=== PATIENT | female | born 1990 ===

== ENCOUNTER 2017-09-29 09:06 | Emergency (ER) | payer OTHER ==
[2017-09-29 09:13] VITALS: BP 110/86; TEMP 98.7; O2SAT 98
--- NOTE | 2017-09-29 09:25 | C.PDOC ---
History Of Present Illness 27 yo female, no prior hx, presents with cough/ear pain/sore throat/subjective fever x 3 days. pt states left ear pain and sore throat. pt did not take fever at home. pt treated with otc meds. pt reports dry cough. no sick contacts. no abdominal pain. no n/v/d, no urinarychanges, no "hot potato" voice, no vomiting , Time Seen by Provider: 09/29/17 09:16 Chief Complaint (Nursing): Flu-like Symptoms Past Medical History Reviewed: Historical Data, Nursing Documentation, Vital Signs Vital Signs: Last Vital Signs Temp 98.7 F 09/29/17 09:09 Pulse 90 09/29/17 09:47 Resp 22 09/29/17 09:47 BP 110/86 09/29/17 09:09 Pulse Ox 98 09/29/17 09:47 Family History: States: Unknown Family Hx - Social History Hx Alcohol Use: No Hx Substance Use: No - Immunization History Hx Tetanus Toxoid Vaccination: No Hx Influenza Vaccination: Yes Hx Pneumococcal Vaccination: No Review Of Systems Constitutional: Positive for: Fever (subjective) ENT: Positive for: Ear Pain Respiratory: Positive for: Cough. Negative for: Shortness of Breath Gastrointestinal: Negative for: Abdominal Pain Physical Exam - Physical Exam Appears: Well, No Acute Distress, Other (speaking full sentences, in nad, no inceased wob) Skin: Normal Color, Warm, Dry Head: Atraumatic, Normacephalic Eye(s): bilateral: Normal Inspection, PERRL, EOMI Ear(s): Left: TM Dull ((+)opaque, loss of light reflex), Right: Normal Nose: Normal Oral Mucosa: Moist Throat: Erythema, Exudate Neck: Normal Cardiovascular: Rhythm Regular Respiratory: Normal Breath Sounds Gastrointestinal/Abdominal: Normal Exam, Soft, No Tenderness, No Guarding, No Rebound Back: Normal Inspection Extremity: Normal ROM Neurological/Psych: Oriented x3 ED Course And Treatment O2 Sat by Pulse Oximetry: 98 Medical Decision Making Medical Decision Making: upper respiratory infection/otitis media- pt well appearing, speaking full sentences in nad. left tm opaque withloss of light reflex, lungs clear- zpak, tylenol, outpt f/u return precautiions Disposition - Disposition Referrals: [facility] [Outside] [facility] [Outside] [facility] [Outside] Disposition: HOME/ ROUTINE Disposition Time: 09:26 Condition: STABLE Additional Instructions: please follow up with your doctor/clinic. return to er with worsening symptoms or concerns. Prescriptions: Azithromycin [Zithromax] 250 mg PO DAILY #4 tab Instructions: Otitis Media (ED), Upper Respiratory Infection (ED) Forms: [employer] (Ecuadorean) Print Language: [place] - Clinical Impression Clinical Impression: Upper respiratory infection, Otitis media
[2017-09-29 09:49] VITALS: PULSE 90; RESP 22
== END 2017-09-29 09:49 | disposition home or self-care (01) ==
LOC: C.ER 09:06
DX: J06.9 Acute upper respiratory infection, unspecified (principal); H66.92 Otitis media, unspecified, left ear